=== PATIENT | male | born 1945 | race Caucasian/White ===

== ENCOUNTER → 2016-05-11 | Day surgery (SDC) | payer OTHER ==
[~2016-05-11] MED LIST: ADVIL200 M2 PO; CLARITIN10 M2 PO; LIPITOR40 MG PO; MOBIC15 MG PO; ZESTORETIC PO
--- NOTE | ~2016-05-11 | OR ---
Unit #: [id number] #: [id number] Patient: RYAN ALLISON DMD [id number] [address] [place], [place] [address] [id number] MR#: [id number] NAME: RYAN ALLISON ROOM: Date of Procedure: 05/11/2016 Admission Date: 05/11/2016 Surgeon: Dayton Hook M.D. : 1945 Attending Physician: Dayton Hook M.D. Primary Care Physician: Syed Alvarez Jr., M.D. OPERATIVE REPORT PREOPERATIVE DIAGNOSES Back pain, radiculopathy, degenerative disk and spine disease. POSTOPERATIVE DIAGNOSES Back pain, radiculopathy, degenerative disk and spine disease. PROCEDURE PERFORMED Lumbar epidural steroid injection with fluoroscopic guidance for needle localization. INDICATIONS FOR PROCEDURE The patient is a 70-year-old male presented with worsening back and bilateral lower extremity pain. They have failed to settle with conservative treatment. He was treated probably 10 years ago with epidural steroids and had done very well until recently. 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 Initial injection done about 2.5 months ago resulted in significant improvement in all components of the pain. He has had a partial return and the plan is to repeat an epidural steroid injection today. DESCRIPTION OF PROCEDURE The patient was placed in a seated position. Standard monitors were applied. Sterile prep and drape of the lumbar area was performed. The skin then at the L4-5 level was localized with 1% lidocaine. An 18-gauge Hustead needle was then advanced via loss of resistance technique and fluoroscopic guidance in toward the epidural space. After confirming proper positioning with fluoroscopy and radiographic contrast, 80 mg of Depo-Medrol and 6 mL of 0.125% bupivacaine were deposited. The patient tolerated the procedure otherwise well and was discharged to the recovery room in stable condition. Dictated by... Delma Donovan/luis TD: 05/12/2016 01:25 JOB #: [id number] Unit #: [id number] #: [id number] Patient: RYAN ALLISON DMD OPERATIVE REPORT X Dayton Hook MD X PROCEDURE OPERATIVE NOTE
== END | disposition home or self-care (01) ==
LOC: CCSC 08:25
DX: M51.16 Intervertebral disc disorders with radiculopathy, lumbar region (principal)
CPT/HCPCS: J1040; J2250